=== PATIENT | female | born 1975 | race Caucasian/White ===

== ENCOUNTER 2017-09-21 17:48 | Emergency (ER) | payer OTHER ==
[~2017-09-21] VITALS: Ht 165.1 cm; Wt 54.9 kg
[2017-09-21 19:48] LABS: CLARITY,URINE SLIGHTLY CLOUDY (Clear); COLOR,URINE YELLOW (Yellow); GLUCOSE, URINE NEGATIVE (Neg); KETONES,URINE 40 mg/dl (Neg); LEUKOCYTE ESTERASE ,URINE LARGE (Neg); NITRITES, URINE NEGATIVE (Neg); OCCULT BLOOD,URINE MODERATE (Neg); PH,URINE 5.5 (4.8-8.0); PROTEIN,URINE NEGATIVE (Neg); UROBILINOGEN,URINE 0.2 E.U/dL (0.2-1.0)
[2017-09-21 19:50] LABS: URINE HCG NEGATIVE (NEG)
[2017-09-21 19:53] LABS: UA COLLECTION TYPE CLN CATCH MIDSTREAM
[2017-09-21 20:07] LABS: BACTERIA,URINE 2+ /HPF (Neg); MUCUS STRANDS NONE SEEN /LPF (Neg); SQUAMOUS EPITHELIAL CELL,UR MODERATE /LPF (FEW); WBC,URINE 50-100 /HPF (0-4)
[2017-09-21] MEDS ORDERED: ondansetron 4mg rapidly disintigrating tab PO ONE (21:15)
[2017-09-21] MEDS ORDERED: ketorolac tromethamine 15mg/ml inj. IM ONE (21:15)
[2017-09-21] MEDS ORDERED: NITR100C PO (22:41)
[2017-09-21] MEDS ORDERED: PHEN-824 PO (22:41)
[2017-09-21] MEDS ORDERED: nitrofuran/nitrofuran macrocrysal 100 MG capsule PO STA (23:09)
[2017-09-21 23:23] VITALS: BP 128/91
== END 2017-09-21 23:24 | disposition home or self-care (01) ==
LOC: ER 17:49
DX: N39.0 Urinary tract infection, site not specified (principal); F17.200 Nicotine dependence, unspecified, uncomplicated; Z88.5 Allergy status to narcotic agent; Z91.030 Bee allergy status; Z79.899 Other long term (current) drug therapy
CPT/HCPCS: 76775; 81001; 81025; 87088; 87186; 96372; 99285; J1885; 87077